=== PATIENT | female | born 1935 | race Caucasian/White ===

== ENCOUNTER 2016-09-23 05:00 | Inpatient (IN) ==
--- NOTE | 2016-09-23 07:08 | Emergency Department Note ---
Fall HPI - General Chief Complaint: Fall Stated Complaint: fall left wrist and hip pain Time Seen by Provider: 09/23/16 07:05 Source: patient Mode of arrival: ambulatory - History of Present Illness HPI Narrative: This patient apparently fell at [facility]. It is not clear exactly when this happened and the circumstances the patient is demented and cannot really tell us. Does have an obviously deformed left wrist and some left hip pain though she seems to be somewhat pain and sensitive according to family. Denies any other injuries. MD Complaint: fall Onset (ago): unknown Fall From: other Fall Witnessed: no Place Fall Occurred: group home/SNF Loss of Consciousness: unsure Prolonged Down Time?: unclear Severity: moderate - Related Data Home Medications Medication Instructions Recorded Confirmed Acetaminophen [Non-Aspirin] 650 mg PO Q6HP PRN 05/01/16 09/23/16 Calcium (Oyster Shell) [Oscal] 500 mg PO TID 05/01/16 09/23/16 Ergocalciferol (Vitamin D2) 2,000 unit PO DAILY 05/01/16 09/23/16 [Vitamin D] Famotidine [Pepcid] 40 mg PO HS 05/01/16 09/23/16 Fluticasone Propionate [Flovent 2 inh INTRANASAL DAILY 05/01/16 09/23/16 Diskus] Folic Acid 1 mg PO DAILY 05/01/16 09/23/16 Metoprolol Succinate 25 mg PO DAILY 05/01/16 09/23/16 Mirtazapine [Remeron] 22.5 mg PO HS 05/01/16 09/23/16 PARoxetine [Paxil] 20 mg PO DAILY 05/01/16 09/23/16 Thiamine Mononitrate [Vitamin B-1] 100 mg PO DAILY 05/01/16 09/23/16 Cyanocobalamin (Vitamin B-12) 1,000 mcg SL DAILY 09/10/16 09/23/16 [Vitamin B-12] Furosemide [Lasix] 20 mg PO .EVEN DAYS 09/10/16 09/23/16 Previous Rx's Medication Instructions Recorded Albuterol Sulfate [Ventolin] 2 puff INH Q4-6HP PRN #1 inhaler 09/10/16 Allergies Allergy/AdvReac Type Severity Reaction Status Date / Time [place] Allergy Intermediate Hives Verified 09/10/16 09:23 No Known Allergies Allergy Verified 09/10/16 09:23 Review of Systems Limitations: ROS unobtainable due to patients medical condition Fall PMH - Past Medical History Medical history: Reports: arthritis, coronary artery disease, dementia, GERD, hyperlipidemia, hypertension, osteoporosis, other (history of colon cancer) Psychiatric history: Reports: depression - Social History Alcohol use: Reports: None Physical Exam Patient has tenderness and obvious deformity of the left wrist. Does have pain with movement of the left leg. Both flexion-extension internal and external rotation. - General Limitations: altered mental status General appearance: alert, in no apparent distress - Head Head exam: atraumatic, normocephalic - Eye Eye exam: Present: normal appearance - ENT ENT exam: normal exam - Neck Neck exam: Present: normal inspection - Chest Chest inspection: Present: normal inspection - Respiratory Respiratory exam: Present: normal lung sounds bilaterally - Cardiovascular Cardiovascular exam: Present: regular rate, normal rhythm, tachycardia, normal heart sounds - Abdominal Exam Abdominal exam: Present: soft. Absent: distention, tenderness - Skin Skin exam: Present: warm, dry, intact Course Vital Signs Pulse Rate 133 H 09/23/16 05:00 Respiratory Rate 16 09/23/16 05:00 Blood Pressure 132/104 09/23/16 05:00 Pulse Oximetry (%) 90 09/23/16 05:00 Temperature 97.0 F 09/23/16 05:01 Pulse Rate 102 H 09/23/16 08:02 Respiratory Rate 20 09/23/16 08:02 Blood Pressure 107/70 09/23/16 08:02 Pulse Oximetry (%) 95 09/23/16 08:02 Fall - [facility] Narrative Medical decision making narrative: This patient has an impacted left hip fracture and a left wrist fracture. Will be admitted to Dr. Cohn and Dr. Hernandez for surgery this afternoon. - Radiology Data Radiology results reviewed: Yes I reviewed the patient's radiology results. Disposition Clinical Impression: Closed left hip fracture, Left wrist fracture Disposition: Xfer As Inpt ([facility]) Condition: Good Referrals: Lasha Duff MD [Primary Care Provider] - Time of Disposition: 08:22
[2016-09-23] MEDS ORDERED: 0.9 % SODIUM CHLORIDE 250 ML IV SCH ×2 (08:30→21:45)
--- NOTE | 2016-09-23 08:34 | XRay Report ---
HISTORY: Reason for Exam:Pain FINDINGS: There is an acute comminuted intra-articular fracture of the distal radius. The articular surface is angulated in a dorsal direction and there is impaction. The overlying soft tissues are swollen. The carpal bones remain normally aligned with the radius. No other fracture is present. There is severe osteoarthritis between the trapezium and first metacarpal. IMPRESSION: Comminuted intra-articular fracture of the distal radius Interpreted and Authenticated by: Hay Mckeon 09/23/16
--- NOTE | 2016-09-23 08:36 | XRay Report ---
HISTORY: Reason for Exam:Pain fell and injured hip FINDINGS: There is an acute transverse fracture of the femoral neck where it joins with the femoral head. There is impaction at the fracture site resulting in mild valgus angulation. The femoral head is normally aligned with the acetabulum of the joint space is normal in width. There is a scoliotic curvature in the lumbar spine with associated disc space narrowing and spur formation. There is malalignment at the symphysis pubis which may be from an old healed fracture or possibly from childbirth. IMPRESSION: Fracture left femoral neck Interpreted and Authenticated by: Hay Mckeon 09/23/16
--- NOTE | 2016-09-23 08:38 | XRay Report ---
HISTORY: Reason for Exam:Fall and preop to repair hip fracture FINDINGS: There are widespread infiltrates throughout both lungs. There is relative sparing of the right lower lobe. These have become worse since 09/10/16. A chest CT done on 05/12/16 show severe interstitial pulmonary fibrosis. There is no pneumothorax or pleural effusion. The heart may be mildly enlarged. There is a dextroscoliotic curvature in the midthoracic spine. No fracture is identified. IMPRESSION: Severe widespread pulmonary fibrosis. There may be superimposed pulmonary vascular congestion or an active inflammatory process which has progressed since 09/10/16. Mild cardiomegaly Interpreted and Authenticated by: Hay Mckeon 09/23/16
--- NOTE | 2016-09-23 08:41 | Cat Scan Report ---
History: Fell with fractured left femoral neck Findings: The left hip was imaged in axial plane without contrast. Sagittal and coronal reformats were created. There is an acute transverse fracture of the femoral neck where it joins with femoral head. There is impaction along the superior border resulting in a valgus deformity. The remainder the proximal femur and visualized portion of the pelvis are normal without evidence of other fractures. There is severe arthritis at the symphysis pubis with mild malalignment. No acute fractures present to this region. There is chondrocalcinosis in the labrum along the lateral border of the acetabular roof. Severe disc space narrowing is present at L5-S1. The left SI joint is normal. Impression: Fractured left femoral neck with impaction Interpreted and Authenticated by: Hay Mckeon 09/23/16
[2016-09-23] MEDS ORDERED: THIAMINE 100 MG TABLET PO SCH (09:56)
[2016-09-23] MEDS ORDERED: ACETAMINOPHEN 1,000 MG/100 ML BOTTLE IV PRN (09:56)
[2016-09-23] MEDS ORDERED: MAGNESIUM SULFATE 2 GM/50 ML BAG IV PRN (09:56)
[2016-09-23] MEDS ORDERED: HYDROmorphone 2 MG/ML SYRINGE IV PRN ×2 (09:56→18:32)
[2016-09-23] MEDS ORDERED: POLYETHYLENE GLYCOL 3350 17 GM PACKET PO PRN ×2 (09:56→18:32)
[2016-09-23] MEDS ORDERED: guaiFENesin/CODEINE 10 ML UDC PO PRN (09:56)
[2016-09-23] MEDS ORDERED: FOLIC ACID 1 MG TABLET PO SCH (09:56)
[2016-09-23] MEDS ORDERED: METOPROLOL SUCCINATE 25 MG TAB.XL.24H PO SCH (09:56)
[2016-09-23] MEDS ORDERED: POTASSIUM CHLORIDE 20 MEQ PACKET PO PRN (09:56)
[2016-09-23] MEDS ORDERED: cefTRIAXone 2 GM in DEXTROSE 5% IN WATER 50 ML IV SCH (09:56)
[2016-09-23] MEDS ORDERED: ALBUTEROL SULFATE 1 PUFF INHALER INH PRN (09:56)
[2016-09-23] MEDS ORDERED: DOCUSATE SODIUM 100 MG CAPSULE PO SCH ×2 (09:56→21:00)
[2016-09-23] MEDS ORDERED: ACETAMINOPHEN (PP) 325MG TABLET (#50) PO PRN (09:56)
[2016-09-23] MEDS ORDERED: ONDANSETRON 4 MG/2 ML VIAL IV PRN ×3 (09:56→18:32)
[2016-09-23] MEDS ORDERED: ACETAMINOPHEN 325 MG TABLET PO PRN ×2 (09:56→18:32)
[2016-09-23] MEDS ORDERED: MULTIVIT,THER IRON,CA,FA & MIN 1 TABLET PO SCH (09:56)
[2016-09-23] MEDS ORDERED: 0.9 % SODIUM CHLORIDE 1,000 ML IV SCH (09:56)
[2016-09-23 09:58] LABS: ALT/SGPT 17 U/l (0-40); Albumin 3.4 gm/dL (3.2-5.2); Alkaline Phosphatase 119 U/L (39-117); Blood Urea Nitrogen 15 mg/dl (8-23)
[2016-09-23] MEDS ORDERED: PARoxetine 20 MG TABLET PO SCH (10:00)
[2016-09-23] MEDS ORDERED: VITAMIN D3 1,000 UNIT TABLET PO SCH (10:00)
[2016-09-23] MEDS ORDERED: PAMIDRONATE 60 MG in 0.9 % SODIUM CHLORIDE 500 ML IV ONE (10:30)
[2016-09-23] MEDS: CALCIUM (OYSTER SHELL) 500 MG TABLET PO SCH ×2 (10:37→18:04)
[2016-09-23 10:56] LABS: Appearance,Urine HAZY; Bacteria,Urine 0 /hpf (0); Bilirubin,Urine NEG (NEG); Color,Urine YELLOW; Glucose,Urine (UA) NEGATIVE (NEG); Leukocyte Esterase,Urine NEG /uL (NEG); Mucus,Urine MOD /hpf (0); Nitrate,Urine NEG (NEG); Protein,Urine 100 mg/dL (NEG); Specific Gravity,Urine 1.018 (1.000-1.035); Urine Blood NEG mg/dL (<0.03); Urine Hyaline Cast 6 /lpf (0-2); Urine RBC 3 /hpf (0-1); Urine Squamous Epithelial Cell 0 /hpf (0-4); Urine WBC 5 /hpf (0-4); Urobilinogen,Urine NEG (NEG)
[2016-09-23] MEDS ORDERED: FLUTICASONE PROPIONATE SPRAY.NAS NS SCH (11:00)
[2016-09-23] MEDS ORDERED: DEXAMETHASONE 10 MG/ML VIAL IV ONE (13:15)
[2016-09-23] MEDS ORDERED: fentaNYL 100 MCG/2 ML VIAL IV ONE (13:15)
[2016-09-23] MEDS ORDERED: PHENYLEPHRINE 10 MG/ML VIAL IV ONE (13:15)
[2016-09-23] MEDS ORDERED: KETAMINE 100 MG/ML ML IV ONE (13:15)
[2016-09-23] MEDS ORDERED: LIDOCAINE HCL/PF 100 MG/5 ML SYRINGE IV ONE (13:15)
[2016-09-23] MEDS ORDERED: PROPOFOL 200 MG/20 ML VIAL IV ONE (13:15)
[2016-09-23] MEDS ORDERED: ONDANSETRON 4 MG/2 ML VIAL IV ONE (13:15)
[2016-09-23] MEDS ORDERED: GLYCOPYRROLATE 0.2 MG/ML VIAL IV ONE (13:15)
[2016-09-23] MEDS ORDERED: MIDAZOLAM 2 MG/2 ML VIAL IV ONE (13:15)
[2016-09-23] MEDS ORDERED: TRANEXAMIC ACID 1,000 MG/10 ML VIAL IV ONE ×2 (13:15→19:14)
--- NOTE | 2016-09-23 13:42 | History and Physical Report ---
DATE OF ADMISSION: 09/23/2016 REASON FOR ADMISSION: Fall with left hip pain and left wrist pain. CONSULTING PHYSICIAN: Fredis Lee MD. PRIMARY CARE PHYSICIAN: Lasha Duff MD. HISTORY OF CHIEF COMPLAINT: This is an 80-year-old resident of [facility] who fell while she was going to the bathroom. The patient, however, denies losing consciousness or precipitating events including dizziness and lightheadedness. She denies incontinence or seizure-like activity. She was subsequently brought into [facility] Emergency Room. Initial workup was significant for left hip fracture along with left wrist fracture. After patient was placed in a splint, Hospitalist Service was requested for admission and preoperative risk evaluation. The patient will likely undergo surgery this evening with Dr. Lee. At the time of examination, the patient is accompanied with two daughters and son-in-law. She was able to provide most of the history. She is currently pain free. She was able to provide answers to most of the questions. She has endorsed to recurrent falls in the last couple of months. She requires assistance for activities of daily living, including feeding, bathing. REVIEW OF SYSTEMS: Ten-point review of system was performed and negative except the ones discussed above. PAST MEDICAL HISTORY: 1. History of hypertension. 2. Neuropathy. 3. Osteoporosis. 4. Allergic rhinitis. 5. History of coronary artery disease. 6. Dementia. 7. Degenerative joint disease. CURRENT MEDICATIONS: 1. Furosemide 20 mg every other day. 2. Thiamine 100 mg daily. 3. Mirtazapine 22.5 mg at bedtime. 4. Metoprolol 25 mg daily. 5. Folic acid 1 mg daily. 7. Flovent intranasal. 8. Acetaminophen 650 mg q.6 p.r.n. SOCIAL HISTORY: She has no history of recent smoking or alcoholism. She resides at [place]. She is a FULL CODE STATUS. PHYSICAL EXAMINATION: GENERAL: The patient is alert and oriented. She denies any active distress. BMI 18. Height 5 feet 5 inches. VITAL SIGNS: Blood pressure 107/70, respiration rate 20, temperature 98.1, pulse 102, sats 95% on 3 liters of oxygen. HEENT: Pupils symmetric. Oral cavity is dry. No ear or nose discharge. Head is normocephalic and atraumatic. NECK: No lymphadenopathy or JVD. CHEST: S1, S2, regular rhythm. ESM grade 1. Diminished breath sounds at bases. ABDOMEN: Soft and nontender. LOWER EXTREMITIES: Left lower extremity externally rotated and shortened with significant pain on passive mobilization of the left hip, along with also a left wrist fracture, currently covered in splint. Ecchymosis on the buttocks. Otherwise no joint swelling, cyanosis or clubbing. SKIN: No suspicious lesions. PSYCHIATRIC: Alert and cooperative. No anxiety. NEURO: Nonfocal, moving upper extremities. Normal higher function. LABS AND IMAGING: Sodium 135, potassium 4.5, creatinine 0.8, and BUN 15. LFTs unremarkable. UA unremarkable. INR 1.1. X-ray chest: Pulmonary fibrosis. CT hip: Left femoral fracture with impaction. X-ray wrist: Comminuted intra-articular fracture of distal radius. ASSESSMENT AND PLAN: An 80-year-old with left hip and radius fracture, admitted inpatient for operative intervention. Orthopedics, Dr. Lee was consulted. 1. Left hip fracture, will be managed by Orthopedics. 2. Left wrist fracture, managed by Orthopedics. 3. Issues managed by Hospitalist Service: a. Preoperative risk evaluation based on patient's age and history of coronary artery disease, along with surgery specific risk. The patient would fall under high risk category. Patient has a poor functional baseline metabolic equivalent of 1. However, there is no modifiable risk factor at this time. The patient understands the risk of immediate intraoperative and postoperative coronary events and CVA and agrees to proceed with surgery. However, surgery and anesthesia specific risks will be addressed and discussed by individual care providers. This assessment was based on RCRI [place] [employer] risk stratification. b. Pain management will be on as-needed opioids. 4. Prior medical issues, including: a. History of osteoporosis. Start pamidronate and calcium vitamin supplements. b. History of anxiety disorder. Continue mirtazapine. c. Hypertension. Continue metoprolol. PLAN FOR TODAY: 1. Admit as inpatient. 2. Keep n.p.o. 3. Resume preexisting previous medications post-surgery once approved by surgeon. AA:veronica Job ID: [id number] Doc ID: [id number] Kei Lee MD [facility]
[2016-09-23 15:14] LABS: Basophils # (Auto) 0 K/mcL (0.0-0.3); Basophils % (Auto) 0.1 % (0.0-2.0); Eosinophils # (Auto) 0.1 K/mcL (0.0-0.7); Eosinophils % (Auto) 0.7 % (0.0-7.0); Granulocytes % (Auto) 90.4 % (38.0-78.0); Lymphocytes # (Auto) 0.6 K/mcL (1.5-4.8); Lymphocytes % (Auto) 5.8 % (15.5-49.0); Mean Corpuscular Hemoglobin 29.8 pg (26.0-34.0); Monocytes # (Auto) 0.3 K/mcL (0.1-0.9); Platelet Count 116 K/mcL (140-440); RBC 4.58 M/mcL (4.00-5.20); Red Cell Distribution Width 15.4 % (11.5-14.5)
--- NOTE | 2016-09-23 16:30 | Consultation ---
DATE OF CONSULTATION: 09/23/2016 ADMITTING DIAGNOSIS: Left hip fracture and left wrist fracture. 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 who fell when she went to the bathroom. She ended up being evaluated at [facility] Emergency Department, worked up appropriately for left hip fracture along with a left distal radius fracture. The patient was properly immobilized and Hospitalist Service was requested with Orthopedic consultation thereafter. The patient is a good historian. She is accompanied today by a son, two daughters and a [id number]. REVIEW OF SYSTEMS: Currently, a 10-point review of systems performed and reviewed. All are negative other than musculoskeletal review of systems mentioned. PAST MEDICAL HISTORY: 1. History of hypertension. 2. Neuropathy. 3. Osteoporosis. 4. Allergic rhinitis. 5. History of coronary artery disease. 6. Dementia. 7. Degenerative joint disease. PAST SURGICAL HISTORY: Partial colectomy with reanastomosis. CURRENT MEDICATIONS: 1. Furosemide 20 mg every other day. 2. Thiamine 100 mg daily. 3. Mirtazapine 22.5 mg at bedtime. 4. Metoprolol 25 mg daily. 5. Folic acid 1 mg daily. 6. ____ 40 __. 7. Flovent intranasal. 8. Acetaminophen 650 mg q.6 p.r.n. SOCIAL HISTORY: She has no history of recent smoking or alcoholism. She resides at [place]. She is a FULL CODE STATUS. PHYSICAL EXAMINATION: VITAL SIGNS: Current vital signs Include temperature of 99.7, pulse 81, respirations 16, blood pressure 109/60, pulse ox 98% on room air. GENERAL: Awake, alert, laying supine on the exam table, demonstrating no apparent distress. Pleasant, awake and oriented x3. HEENT: Head normocephalic. CHEST: Clear to auscultation. No wheezing, rhonchi or rales. CARDIAC: Normal sinus rhythm. She does have a grade I systolic ejection murmur. ABDOMEN: Soft and nontender. EXTREMITIES: Left lower extremity was actually propped on a pillow in fairly neutral alignment but was previously externally rotated and shortened in comparison to the right hip. There is a little bit of ecchymosis on the buttocks, and she did have grade I decubitus ulcer on the coccyx. SKIN: No suspicious lesions otherwise. NEUROLOGIC: She is grossly intact neurologically over dermatomes L4-L5 and S1 and had grossly intact motor control of the hip flexors, quads, hamstrings, dorsiflexor, plantar flexors and EHLs. DIAGNOSTIC STUDIES: The patient's labs include a hemoglobin of 13.6, hematocrit 42.6. She has a urinalysis normal. A chemistry with a sodium of 135, BUN 15, creatinine 0.8, calcium 9.4, AST 25, ALT 19, alkaline phosphatase 119. The patient has a PT of 14.1, INR 1.1. X-rays include a left femur surgical neck fracture with impaction and the left wrist x-ray reveals a closed, displaced, comminuted intra-articular distal radius Colles fracture. ASSESSMENT AND PLAN: An 80-year-old with a left hip and distal radius fracture. Plan from an orthopedic standpoint will include a left cemented pily-hip arthroplasty, followed by a left wrist distal radius ORIF. The surgical benefits, risks and alternatives to surgery were discussed with the patient, both by myself and Anesthesia that includes, but are not necessarily limited to, complications with anesthesia; heart attack; stroke; ; blood loss that could require blood transfusion with secondary acquisition of HIV and hepatitis or AIDS; fatigue or weakness following surgery; pain or paresthesias; risks of dislocation; risk of further advancing arthritis of the acetabulum that could result in future revision surgeries; infection that could also result in long-term IV antibiotics and/or IV therapy; and pain or chronic paresthesias. These were discussed with the patient who consents to procedure as described, and we will follow her postoperatively in a normal fashion. BAP:veronica Job ID: [id number] Doc ID: [id number] Preet Snowden PA-C
[2016-09-23] MEDS ORDERED: ceFAZolin 1 GM VIAL IV ONE (16:42)
[2016-09-23] MEDS ORDERED: GENTAMICIN SULFATE 800 MG/20 ML VIAL IR ONE (16:52)
[2016-09-23] MEDS ORDERED: BUPIVACAINE PF 0.5% 30 ML VIAL IJ ONE (17:33)
[2016-09-23] MEDS ORDERED: IPRATROPIUM/ALBUTEROL 3 ML AMPUL.NEB NEB PRN (18:12)
[2016-09-23] MEDS ORDERED: KETOROLAC 15 MG/ML VIAL IV PRN ×2 (18:12→18:32)
[2016-09-23] MEDS ORDERED: ACETAMINOPHEN 1,000 MG/100 ML BOTTLE IV ONE (18:12)
[2016-09-23] MEDS ORDERED: LACTATED RINGERS 250 ML IV PRN (18:12)
[2016-09-23] MEDS ORDERED: diphenhydrAMINE 50 MG/ML VIAL IV PRN (18:12)
[2016-09-23] MEDS ORDERED: BENZOCAINE/MENTHOL 1 LOZENGE PO PRN ×2 (18:12→18:32)
[2016-09-23] MEDS ORDERED: FLUMAZENIL 0.1 MG/ML ML IV PRN (18:12)
[2016-09-23] MEDS ORDERED: PROMETHAZINE 25 MG/ML VIAL IV PRN (18:12)
[2016-09-23] MEDS ORDERED: NALOXONE HCL 0.4 MG/ML VIAL IV PRN (18:12)
[2016-09-23] MEDS ORDERED: LACTATED RINGERS 1,000 ML IV SCH (18:15)
[2016-09-23] MEDS ORDERED: MAGNESIUM HYDROXIDE 30 ML ORAL.SUSP PO PRN ×2 (18:32→21:00)
[2016-09-23] MEDS ORDERED: HYDROcodone/APAP 10/325MG TABLET PO PRN (18:32)
[2016-09-23] MEDS ORDERED: BISACODYL 10 MG SUPP.RECT PR PRN (18:32)
[2016-09-23] MEDS ORDERED: FLEETS ADULT ENEMA PR PRN (18:32)
[2016-09-23] MEDS ORDERED: TEMAZEPAM 15 MG CAPSULE PO PRN (18:32)
[2016-09-23] MEDS ORDERED: 0.45 % SODIUM CHLORIDE 1,000 ML IV SCH (18:45)
--- NOTE | 2016-09-23 18:55 | Brief Operative Note ---
Date of procedure: 09/23/16 Pre-op diagnosis: left femoral neck fx and left 3 part colles fx Post-op diagnosis: same Procedure: left hip cemented pily arthroplasty and left distal radius fx orif Grafts/Implants: Yes Anesthesia: GETA Complications: none Surgeon: Fredis Lee Cash Specialist: Preet Snowden Estimated blood loss (cc): 100 Tourniquet Time (Minutes): 35 Specimens Removed/Pathology: none sent Condition: stable Disposition: PACU
[2016-09-23] MEDS: TRANEXAMIC ACID 1,000 MG/10 ML VIAL IV ONE ×2 (19:11→20:08)
[2016-09-23] MEDS ORDERED: 0.9 % SODIUM CHLORIDE 1,000 ML IV ONE (20:59)
[2016-09-23] MEDS ORDERED: MIRTAZAPINE 15 MG TABLET PO SCH (21:00)
[2016-09-23] MEDS ORDERED: SENNOSIDES 1 TABLET PO SCH (21:00)
[2016-09-23] MEDS ORDERED: traZODone HCL 50 MG TABLET PO PRN (21:00)
[2016-09-23] MEDS ORDERED: SENNOSIDES/DOCUSATE SODIUM 1 TAB TABLET PO SCH (21:00)
[2016-09-23] MEDS ORDERED: VASOPRESSIN 20 UNIT/ML VIAL ONE (21:09)
[2016-09-23] MEDS ORDERED: FLUMAZENIL 0.1 MG/ML ML IV ONE ×2 (21:09→21:19)
[2016-09-23] MEDS ORDERED: NALOXONE HCL 0.4 MG/ML VIAL IV ONE (21:13)
[2016-09-23] MEDS ORDERED: NALOXONE HCL 0.4 MG/ML VIAL ONE (21:18)
[2016-09-23] MEDS ORDERED: NOREPINEPHRINE BITARTRATE 4 MG/4 ML AMPUL IV ONE (21:25)
[2016-09-23] MEDS ORDERED: VASOPRESSIN 20 UNIT in DEXTROSE 5% IN WATER 99 ML IV SCH (21:45)
[2016-09-23] MEDS ORDERED: NOREPINEPHRINE BITARTRATE 16 MG in 0.9 % SODIUM CHLORIDE 234 ML IV SCH (21:45)
--- NOTE | 2016-09-23 21:47 | Transfer Summary ---
Transfer Discharge Sum: Prov Patient information: Note initiated : 09/23/16 at 9:41 pm Service Date, if different from initiated Date: [] Patient: Ivana Ortiz 80 y/o F admitted on 09/23/16 for Fall, Lt Wrist/Hip Pain. Chief Complaint: [] Date of admission: 09/23/16 09:38 Discharge Date: 09/23/16 Primary care physician: Lasha Duff Receiving physician/facility: [facility] Transfer Discharge Sum: Diag - Discharge Diagnosis (1) Shock circulatory Status: Acute Transfer Discharge Sum: Med - Medications Active and Home Medications: Home Medications Acetaminophen [Non-Aspirin] 650 mg PO Q6HP PRN 05/01/16 [History Confirmed 09/23] Calcium (Oyster Shell) [Oscal] 500 mg PO TID 05/01/16 [History Confirmed ] Ergocalciferol (Vitamin D2) [Vitamin D] 2,000 unit PO DAILY 05/01/16 [History Confirmed 09/23/16] Folic Acid 1 mg PO DAILY 05/01/16 [History Confirmed 09/23/16] Metoprolol Succinate 25 mg PO DAILY 05/01/16 [History Confirmed 09/23/16] Mirtazapine [Remeron] 22.5 mg PO HS 05/01/16 [History Confirmed 09/23/16] PARoxetine [Paxil] 20 mg PO DAILY 05/01/16 [History Confirmed 09/23/16] Thiamine Mononitrate [Vitamin B-1] 100 mg PO DAILY 05/01/16 [History Confirmed 09/23/16] Albuterol Sulfate [Ventolin] 2 puff INH Q4-6HP PRN #1 inhaler 09/10/16 [Rx Confirmed 09/23/16] Cyanocobalamin (Vitamin B-12) [Vitamin B-12] 1,000 mcg SL DAILY 09/10/16 [ History Confirmed 09/23/16] Fluticasone Propionate [Flonase] 2 spray NS DAILY 09/23/16 [History Confirmed ] Furosemide [Lasix] 20 mg PO Q48H 09/23/16 [History Confirmed 09/23/16] Active Medications Acetaminophen (Tylenol) 650 mg PO Q6HP PRN PRN Reason: PAIN/FEVER > 101 Acetaminophen/Hydrocodone Bitart ([place] 10/325mg) 0 tab PO Q4HP PRN PRN Reason: Pain Albuterol Sulfate (Ventolin) 2 puff INH Q4-6HP PRN PRN Reason: Cough Bisacodyl (Dulcolax) 10 mg AR Q2-3DAYS PRN PRN Reason: Constipation Calcium Carbonate/Glycine (Oscal) 500 mg PO TID [facility] Last Admin: 09/23/16 18:04 Dose: Not Given Cefazolin Sodium (Ancef) 1 gm IV Q8H [facility] Stop: 09/24/16 06:01 Docusate Sodium (Colace) 100 mg PO BID [facility] Fluticasone Propionate (Flonase) 2 spray NS DAILY [facility] Last Admin: 09/23/16 12:42 Dose: Not Given Folic Acid (Folic Acid) 1 mg PO DAILY [facility] Last Admin: 09/23/16 10:37 Dose: Not Given Furosemide (Lasix) 20 mg PO Q48H [facility] Guaifenesin/Codeine Phosphate (Robitussin Ac) 10 ml PO Q4HP PRN PRN Reason: Cough Heparin Sodium (Porcine) (Heparin) 5,000 unit SQ Q12 [facility] Hydromorphone HCl (Dilaudid) 0 mg IV Q2HP PRN PRN Reason: Pain Magnesium Sulfate (Magnesium Sulfate) 2 gm in 50 mls @ 50 mls/hr IV UD PRN PRN Reason: MG = or < 1.7 Sodium Chloride (Sodium Chloride 0.9%) 1,000 mls @ 50 mls/hr IV .Q20H [facility] Stop: 09/25/16 21:55 Last Admin: 09/23/16 10:13 Dose: 50 mls/hr Sodium Chloride (Sodium Chloride 0.45%) 1,000 mls @ 100 mls/hr IV .Q10H [facility] Last Admin: 09/23/16 20:48 Dose: 100 mls/hr Norepinephrine Bitartrate 16 (mg/ Sodium Chloride) 250 mls @ 9.37 mls/hr IV Q24H [facility]; 10 MCG/MIN PRN Reason: Protocol Sodium Chloride (Sodium Chloride 0.9%) 250 mls @ 20 mls/hr IV .[id number] [facility] Vasopressin 20 unit/ Dextrose 100 mls @ 12 mls/hr IV Q8H DAVID; 0.04 UNIT/MIN PRN Reason: Protocol Iron Carb/Multivit/Stephenson/Folic Acid (Multivitamin W/Minerals) 1 tab PO DAILY [facility] Last Admin: 09/23/16 10:37 Dose: Not Given Ketorolac Tromethamine (Toradol) 15 mg IV Q6HP PRN PRN Reason: Pain Stop: 09/25/16 18:42 Magnesium Hydroxide (Milk Of Magnesia) 30 ml PO BIDP PRN PRN Reason: Constipation Metoprolol Succinate (Toprol Xl) 25 mg PO DAILY [facility] Last Admin: 09/23/16 12:45 Dose: 25 mg Mirtazapine (Remeron) 22.5 mg PO HS [facility] Ondansetron HCl (Zofran) 4 mg IV Q4HP PRN PRN Reason: Nausea And Vomiting Paroxetine HCl (Paxil) 20 mg PO DAILY [facility] Last Admin: 09/23/16 10:38 Dose: Not Given Polyethylene Glycol (Miralax) 17 gm PO DAILYP PRN PRN Reason: Constipation Potassium Chloride (Klor-Con) 40 meq PO DAILYP PRN PRN Reason: K+ < 3.5 Senna (Senokot) 2 tab PO HS [facility] Sodium Biphosphate/Sodium Phosphate (Fleets Adult) 1 dose AR Q3-4DAYS PRN PRN Reason: Constipation Temazepam (Restoril) 15 mg PO HSP PRN PRN Reason: Insomnia Thiamine HCl (Vitamin B1) 100 mg PO DAILY [facility] Last Admin: 09/23/16 10:38 Dose: Not Given Throat Lozenges (Cepacol) 1 lozenge PO PRN PRN PRN Reason: Sore Throat Trazodone HCl (Desyrel) 50 mg PO HSP PRN PRN Reason: Insomnia Vitamin D (Vitamin D3) 2,000 unit PO DAILY [facility] Last Admin: 09/23/16 10:38 Dose: Not Given Transfer Discharge Sum: Hosp Hospital course: TRANSFER DIAGNOSIS * Circulatory shock-postoperative. Unclear etiology, rule out acute OR/ pulmonary embolism. On crystalloids challenge for possible hypovolemia/started vasopressors. Currently map at goal on pressors. Transferring to tertiary Center ICU for further management. * acute mental status change- Victor Coma Scale 2. * Left hip fracture status post repair by Dr. Lee orthopedics * History of pulmonary fibrosis * history of CAD * History of DJD * History of dementia BRIEF HOSPITAL COURSE Ms. Ortiz is a 80 year old female admitted with left hip/left wrist fracture. Patient has a poor baseline functional statuswith pulmonary fibrosis/history of coronary artery disease. preoperatively operative mortality/morbidity risks were discussed by myself and surgeon/anesthesia. She subsequently underwent operative intervention. Postoperatively patient became hypotensive, systolics around 60s. She was started on vasopressors along with crystalloid boluses. Stat labs including CBC /IV/cardiac enzymes/venous lactate was ordered. With crystalloids and vasopressors systolics went up from 60-110. EJ line secured, stat EKG shows sinus rhythm without any ST changes. 1 dose of Romazicon/1 dose of Narcan administered without any significant effect. Patient responding minimally to sternal rub No ICU beds available at [facility]. Case discussed with [facility] kitchen help handyman Dr. Flowers for possible transfer. patient accepted at [facility] ICU. patient will be transferred via critical care ambulance support on dual vasopressors. total critical care time spent and stabilizing patient over 40 minutes - Time Spent with Patient Total time spent providing and/or coordinating transfer services: Greater than 30 minutes Transfer Discharge Sum: Exam - Constitutional Vitals: Vital Signs Temp Pulse Resp BP Pulse Ox 09/23/16 21:03 98 09/23/16 20:20 152 H 98/49 87 L 09/23/16 20:05 48 L 74/48 99 09/23/16 19:50 44 L 88/54 09/23/16 19:35 97.8 F 46 L 14 93/58 96 09/23/16 19:23 97.5 F 91 H 14 92/48 95 09/23/16 19:13 97.5 F 91 H 14 104/46 100 09/23/16 19:00 89 18 118/48 99 09/23/16 18:45 93 H 13 106/77 100 09/23/16 18:29 98 H 13 107/53 100 09/23/16 18:24 96 H 14 95/45 99 09/23/16 18:17 100 H 14 91/41 99 09/23/16 18:12 97.6 F 96 H 14 90/43 99 09/23/16 14:22 99.7 F H 81 16 109/63 98 09/23/16 09:56 98.1 F 16 104/60 92 Intake and Output 09/23/16 09/23/16 09/23/16 05:59 13:59 21:59 Intake Total 1999 Output Total 620 / 620 Balance 1380 / 1380 Intake: IV 1000 / 1000 Sodium Chloride 0.9% 250 ml @ 20 mls/hr IV . [id number] [facility] Rx#:[id number] IV - Manual Only 1000 / 1000 Output: Urine Catheter Amount 470 / 470 Estimated Blood Loss 150 / 150 Transfer Discharge Sum: A/P - Problem Maintenance (1) Shock circulatory Status: Acute - Plan Functional capacity at transfer: bed bound Overall status at transfer: patient is not back to baseline Disposition: Xfer [facility] Quality Measure Queries - VTE Deep Vein Thrombosis/Pulmonary Embolism Present on Admission: No
[2016-09-23] MEDS ORDERED: ceFAZolin 1 GM VIAL IV SCH (22:00)
[2016-09-23 22:05] LABS: Basophils # (Auto) 0 K/mcL (0.0-0.3); Basophils % (Auto) 0 % (0.0-2.0); Eosinophils # (Auto) 0 K/mcL (0.0-0.7); Eosinophils % (Auto) 0.4 % (0.0-7.0); Granulocytes % (Auto) 92.9 % (38.0-78.0); Lymphocytes # (Auto) 0.4 K/mcL (1.5-4.8); Lymphocytes % (Auto) 4.2 % (15.5-49.0); Mean Cell Volume 92.7 fL (80.0-100.0); Mean Corpuscular HGB Conc 32.4 g/dL (31.0-36.0); Monocytes # (Auto) 0.3 K/mcL (0.1-0.9); Monocytes % (Auto) 2.5 % (1.0-12.0); Platelet Count 98 K/mcL (140-440); RBC 3.82 M/mcL (4.00-5.20); Red Cell Distribution Width 15.1 % (11.5-14.5)
[2016-09-23 22:18] LABS: ALT/SGPT 15 U/l (0-40); Albumin 2.6 gm/dL (3.2-5.2); Albumin/Globulin Ratio 0.9 (1.0-2.3); Alkaline Phosphatase 92 U/L (39-117); Bilirubin,Direct < 0.2 mg/dL (0.0-0.3); Blood Urea Nitrogen 19 mg/dl (8-23); Gamma Glutamyl Transpeptidase 21 U/L (5-36); Magnesium 1.5 mg/dL (1.6-2.5); Uric Acid 3.6 mg/dL (2.5-8.0)
[2016-09-24] MEDS: CALCIUM (OYSTER SHELL) 500 MG TABLET PO SCH (01:40)
--- NOTE | 2016-09-24 08:00 | XRay Report ---
HISTORY: Reason for Exam:Post-Op Total Hip FINDINGS: There is a well-positioned left total hip prosthesis. No fracture is present and there are no abnormal soft tissue calcifications. There is arthritis at the symphysis pubis and degenerative disc disease in the lower lumbar spine. A row of surgical sutures are present laterally in the right mid and upper pelvis. IMPRESSION: Well-positioned left hip prosthesis Interpreted and Authenticated by: Hay Mckeon 09/24/16
--- NOTE | 2016-09-24 08:35 | Operative Note ---
DATE OF OPERATION: 09/23/2016 PREOPERATIVE DIAGNOSES: 1. Subcapital femoral neck fracture transverse fracture pattern with impaction and angulation of 10 to 20 degrees. 2. Left distal radius fracture three-part split Colles fracture with comminution of the radius, shortening of 10 mm. POSTOPERATIVE DIAGNOSES: 1. Subcapital femoral neck fracture transverse fracture pattern with impaction and angulation of 10 to 20 degrees. 2. Left distal radius fracture three-part split Colles fracture with comminution of the radius, shortening of 10 mm. PROCEDURE: 1. Left hip cemented hemiarthroplasty. 2. Left distal radius fracture three-part open reduction and internal fixation with a volar plate and screws. SURGEON: Fredis Lee MD. CUT OFF SAWYER: Preet Snowden PA-C. ANESTHESIA: General LMA anesthesia. COMPLICATIONS: None. ESTIMATED BLOOD LOSS: About 100 mL. COMPLICATIONS: None. TOTAL TOURNIQUET TIME: 35 minutes on the left arm. DESCRIPTION OF PROCEDURE: The patient was brought to the operating room and put to sleep with general LMA anesthesia. Once asleep, the patient had the left hip sterilely prepped and draped in the right lateral position with the [place] positioner. We noted the patient did have a pressure sore on the sacral region. Once sterilely prepped and draped. We then placed Ioban over the skin and made a superior posterior approach after appropriate timeout. Once this was done, we then exposed the superior posterior capsule, dislocated the hip and made our neck cut at about 10 mm above the lesser trochanter. Once this was done, the hip was sized and debris from the intra-articular region was removed and torn labrum was removed. We then broached up to the size 5 stem, cemented into size 5 stem with a collar, placed in 20 degrees of anteversion. Once the cement was hardened, we then placed a 2.5 increased neck length with a dual mobility ball. This was tapped into place and reduced the hip. The hip was very stable throughout. We irrigated, repaired the capsule with #2 Ethibond, closed the fascial layer with #2 Ethibond and #1 Vicryl, and closed the skin with 2-0 Vicryl and jacquelyn. Once done a sterile bandage was applied, as well as the pressure sore on the sacrum was also covered. We then turned the patient supine on a different table. She was transferred to a new table. The left arm was confirmed as the operative site. The splint had been removed. The left arm was sterilely prepped and draped in the usual sterile fashion. We exsanguinated the arm and inflated the tourniquet to 220 pounds of pressure. We made a volar approach to the flexor carpi radialis, exposed the distal radius. This 3-part fracture of the distal radius was reduced open with traction. Image was used to confirm its position. Once this was done, a medium Hernando volar plate was placed. We placed one screw which compressed the fracture site. Once we readjusted the plate and perfectly positioned, we then placed five screws in the distal fragment and four additional locking screws in the proximal fragment. Bone quality was very poor. Size of screws per nurse's note. We irrigated thoroughly and took pictures. This was anatomically reduced on AP and lateral view without intra-articular penetration. We then closed the volar approach with #3 Vicryl and 4-0 nylon. Sterile bandage applied. A volar splint was applied. The patient tolerated this well. Tourniquet deflated at 35 minutes. RBH:veronica Job ID: [id number] Doc ID: [id number] Fredis Lee MD
[2016-09-24] MEDS ORDERED: FUROSEMIDE 20 MG TABLET PO SCH (09:00)
[2016-09-24] MEDS ORDERED: HEPARIN 5,000 UNIT/ML VIAL SQ SCH (16:00)
== END 2016-09-23 22:01 | disposition short-term general hospital (02) | DRG 469 ==
LOC: ED 05:00 → MEDSUR 09:38
PROVIDERS: ADMIT Internal Medicine; ATTEND Internal Medicine
PROC: HEMIHIP (2016-09-23 16:12)